=== PATIENT | male | born 1970 | race Hispanic/Latino ===

== ENCOUNTER → 2018-07-05 | Outpatient (CLI) | payer OTHER ==
--- NOTE | 2018-07-05 17:31 | Diagnostic Imaging Report ---
TECHNIQUE: Magnetic resonance imaging of the left femur was performed WITHOUT injected contrast. HISTORY: Pain, fall COMPARISON: None available. FINDINGS: Bone marrow signal is normal. No edema, fracture, or infiltrating lesion. No osteonecrosis. Intramuscular edema predominantly within the vastus intermedius and mildly involving the rectus femoris and vastus lateralis. No high-grade tear. Soft tissues are otherwise unremarkable. No muscle atrophy. No fluid collections or soft tissue masses. IMPRESSION: Muscle strain/contusion of the quadriceps muscles predominantly involving the vastus intermedius. No high-grade tear. Signed by: Dr. Pilo Muller M.D. on 07/06/2018 8:27 AM
== END ==
LOC: MRI 15:36
PROVIDERS: ATTEND Family Medicine
DX: M79.652 Pain in left thigh (principal)

== ENCOUNTER → 2019-03-27 | Outpatient (CLI) | payer OTHER ==
--- NOTE | 2019-03-28 08:35 | Diagnostic Imaging Report ---
TECHNIQUE: Magnetic resonance imaging of the sacrum was performed WITHOUT injected contrast. HISTORY: Left-sided sciatica COMPARISON: None available. FINDINGS: BONES: No acute fracture. The bone marrow signal is heterogeneous, compatible with red marrow conversion, no specific evidence of a focal bone marrow replacing abnormality. JOINTS: Minimal degenerative changes of the sacroiliac joints, no effusion or erosions. SOFT TISSUES: Unremarkable. OTHER: Incidentally, degenerative disc changes at the visualized L4-5 and L5-S1 disc. * A L4-5 central and right central, subarticular disc protrusion, impinging upon the descending right L5 nerve root. * A L5-S1 central and left central, subarticular disc protrusion, impinging upon the descending left S1 nerve root. IMPRESSION: 1. Degenerative disc changes at L4-5 and L5-S1, as detailed above. 2. No acute sacral abnormality. 3. Minimal osteoarthrosis of the sacroiliac joints. Signed by: Dr. Marc Barrientos D.O., M.M.M. on 03/28/2019 8:32 AM
== END ==
LOC: MRI 14:12
PROVIDERS: ATTEND Family Medicine
DX: M54.32 Sciatica, left side (principal); M51.37 Other intervertebral disc degeneration, lumbosacral region; M47.898 Other spondylosis, sacral and sacrococcygeal region
CPT/HCPCS: 72195